=== PATIENT | male | born 1995 | race Two or more races ===

== ENCOUNTER 2017-11-25 08:14 | Emergency (ER) | payer SELFPAY ==
[2017-11-25 08:25] VITALS: BP 136/85; PULSE 87; TEMP 98.1; BMI 34.0
--- NOTE | 2017-11-25 08:41 | PDOC ---
History of Present Illness - General Chief Complaint: Rash Stated Complaint: ALLERGIC RXN Time Seen by Provider: 11/25/17 08:40 History Source: Patient Exam Limitations: No Limitations - History of Present Illness Initial Comments: 11/25/17 09:06 Patient is a 22-year-old male with no past medical history presents emergency department today complaining of hives for approximately one week. Patient states that these symptoms began after using [id number] and a sulfa based wash after having bedbugs approximately 1 month ago. He stopped using the sulfa medication about one week ago. Pt. states that he used benadryl once yesterday with some relief. Denies shortness of breath, cough, tongue swelling, throat swelling, difficulty swallowing, changes in his voice. Past History - Travel Traveled outside of the country in the last 30 days: No Close contact w/someone who was outside of country & ill: No - Past Medical History Allergies/Adverse Reactions: Allergies Allergy/AdvReac Type Severity Reaction Status Date / Time No Known Allergies Allergy Verified 11/25/17 08:21 Home Medications: Ambulatory Orders predniSONE [Deltasone -] 40 mg PO DAILY #8 tablet 11/25/17 COPD: No Other medical history: DENIES - Suicide/Smoking/Psychosocial Hx Smoking History: Current some day smoker Have you smoked in the past 12 months: Yes Information on smoking cessation initiated: No Review of Systems - Review of Systems Able to Perform ROS?: Yes Comments:: 11/25/17 09:08 CONSTITUTIONAL: Absent: fever, chills, diaphoresis, generalized weakness, malaise, loss of appetite HEENT: Absent: rhinorrhea, nasal congestion, throat pain, throat swelling, difficulty swallowing, mouth swelling, ear pain, eye pain, visual Changes RESPIRATORY: Absent: cough, shortness of breath, dyspnea with exertion, orthopnea, wheezing, stridor, hemoptysis GASTROINTESTINAL: Absent: abdominal pain, abdominal distension, nausea, vomiting, diarrhea, constipation, melena, hematochezia MUSCULOSKELETAL: Absent: myalgia, arthralgia, joint swelling SKIN: Present: hives, itching Absent: pallor NEUROLOGIC: Absent: headache, focal weakness or paresthesias, dizziness, unsteady gait, seizure, mental status changes, bladder or bowel incontinence Is the patient limited [place]ian proficient: No *Physical Exam - Vital Signs Last Vital Signs Temp Pulse Resp BP Pulse Ox 98.1 F 87 19 136/85 98 11/25/17 08:21 11/25/17 08:21 11/25/17 08:21 11/25/17 08:21 11/25/17 08:21 Medical Decision Making - Medical Decision Making 11/25/17 09:54 Hives improved with benadryl and prednisone. Will d/c home at this time. *DC/Admit/Observation/Transfer Diagnosis at time of Disposition: Allergic reaction Qualifiers: Encounter type: initial encounter Qualified Code(s): T78.40XA - Allergy, unspecified, initial encounter - Discharge Dispostion Disposition: HOME Condition at time of disposition: Good Admit: No - Prescriptions Prescriptions: predniSONE [Deltasone -] 40 mg PO DAILY #8 tablet - Referrals Referrals: Jayme Hunt MD [Staff Physician] - - Patient Instructions Printed Discharge Instructions: DI for General Allergic Reactions Additional Instructions: You had a generalized ALLERGIC reaction. I suspect it is due to the sulfa washes you've been using. Please avoid all sulfa products until you can be tested for ALLERGIES. Referral has been provided for Dr. Hunt, who is an edger automatic. Please take prednisone 40 mg for the next 4 days. A prescription has been provided for you. Also take Benadryl 25 mg every 6 hours until the rash has subsided. Please use hypoallergenic creams and washes. Unscented Dove, Eucerin, Aveeno are all good choices. Return to the emergency department if you have difficulty breathing, wheezing, shortness of breath, worsening rash despite treatment, or any changes in your symptoms. - Post Discharge Activity Forms/Work/School Notes: Back to Work
[2017-11-25] MEDS ORDERED: predniSONE 20 MG TABLET (UD) PO ONE (09:13)
[2017-11-25] MEDS ORDERED: diphenhydrAMINE HCL 25 MG CAPSULE (FP) PO ONE ×2 (09:13→09:17)
[2017-11-25] MEDS ORDERED: predniSONE 20 MG TABLET (UD) ONE (09:17)
== END 2017-11-25 10:01 | disposition home or self-care (01) ==
LOC: JERFT 08:14
DX: L50.0 Allergic urticaria (principal); T78.40XA Allergy, unspecified, initial encounter
CPT/HCPCS: 99281-25

== ENCOUNTER 2023-11-23 21:34 | Emergency (ER) | payer SELFPAY ==
[2023-11-23 21:43] VITALS: BP 156/81; PULSE 83; RESP 18; TEMP 97.5; BMI 38.4
[2023-11-24] MEDS ORDERED: IBUPROFEN 600 MG TABLET (FP) PO ONE (00:13)
[2023-11-24] MEDS: IBUPROFEN 600 MG TABLET (FP) PO ONE (00:15)
== END 2023-11-24 00:29 | disposition home or self-care (01) ==
LOC: JER 21:34 → JERFT 21:34 → JER 11-24 00:29
DX: K02.9 Dental caries, unspecified (principal); K08.89 Other specified disorders of teeth and supporting structures
CPT/HCPCS: 99283-25